=== PATIENT | male | born 1975 | race Two or more races ===

== ENCOUNTER 2019-07-21 19:36 | Emergency (ER) | payer SELFPAY ==
[~2019-07-21] VITALS: Ht 172.7 cm; Wt 99.8 kg
[2019-07-21] MEDS ORDERED: IV NORMAL SALINE 1000ML BAG 1,000 ML IV ONE (20:00)
[2019-07-21 20:23] LABS: INFLUENZA A PATIENT NEGATIVE (NEGATIVE); INFLUENZA B PATIENT POSITIVE (NEGATIVE)
[2019-07-21 20:24] LABS: BASO % 1 % (0-3); EOS # 0.1 x10^3/uL (0.0-0.7); EOS % 2 % (0-3); HEMATOCRIT 45.6 % (39.0-53.0); HEMOGLOBIN 15.7 g/dL (13.0-17.5); LYMPH # 1.4 x10^3/uL (1.0-4.8); LYMPH % 25 % (24-48); MEAN CORPUSCULAR HEMOGLOBIN 30 pg (25-35); MEAN CORPUSCULAR HGB CONC 34 g/dL (31-37); MEAN CORPUSCULAR VOLUME 87 fL (79-100); MONO # 0.5 x10^3/uL (0.0-1.1); MONO % 10 % (0-9); NEUT # 3.5 x10^3/uL (1.8-7.7); NEUT % 63 % (31-73); PLATELET COUNT 146 x10^3/uL (140-400); RED BLOOD COUNT 5.24 x10^6/uL (4.30-5.70); RED CELL DISTRIBUTION WIDTH 13.6 % (11.5-14.5); WHITE BLOOD COUNT 5.5 x10^3/uL (4.0-11.0)
[2019-07-21 20:32] LABS: PROTHROMBIN TIME PATIENT 12.4 SEC (11.7-14.0)
[2019-07-21 20:39] LABS: CALCIUM 8.5 mg/dL (8.5-10.1); CREATININE 0.8 mg/dL (0.7-1.3); POTASSIUM 3.6 mmol/L (3.5-5.1)
[2019-07-21 20:53] LABS: TOTAL BILIRUBIN 0.3 mg/dL (0.2-1.0)
--- NOTE | 2019-07-21 21:10 | RAD ---
EXAM: CT HEAD WITHOUT CONTRAST. HISTORY: Headache and sinus pain. TECHNIQUE: Computed tomography of the head was performed without intravenous contrast. One or more of the following individualized dose reduction techniques were utilized for this examination: 1. Automated exposure control. 2. Adjustment of the mA and/or kV according to patient size. 3. Use of iterative reconstruction technique. COMPARISON: None. FINDINGS: A few tiny parenchymal calcifications are noted in the temporal lobes and right frontal lobe. There is no intracranial hemorrhage. Galvin-white differentiation is preserved. The ventricles are normal in size and position. There is mild mucosal thickening in the ethmoid air cells. There are no air-fluid levels within the visualized paranasal sinuses. The orbits are unremarkable. The temporal bones are unremarkable. The calvarium reveals no suspicious lesions. IMPRESSION: 1. No acute intracranial findings. 2. A few tiny parenchymal calcifications are nonspecific. Correlate for congenital infections, cavernomas, or other infections such as cysticercosis. Electronically signed by: Kingston Rene MD (07/21/2019 9:07 PM) [facility]
[2019-07-21 21:23] LABS: BILIRUBIN,URINE NEGATIVE (NEG); CLARITY,URINE CLEAR; COLOR,URINE YELLOW; NITRITE,URINE NEGATIVE (NEG); PROTEIN,URINE NEGATIVE (NEG-TRACE); UROBILINOGEN,URINE 0.2 mg/dL (0.2 mg/dL)
[2019-07-21 21:28] LABS: BACTERIA,URINE 0 /HPF (0-FEW); RBC,URINE 0 /HPF (0-2); WBC,URINE 0 /HPF (0-4)
--- NOTE | 2019-07-21 21:28 | RAD ---
EXAM: PA and Lateral Views of the Chest DATE: 07/21/2019 7:46 PM INDICATION: Cough, fever, shortness of air COMPARISON: No Prior FINDINGS: The heart is not enlarged. Mediastinal and hilar contours are stable. Patchy opacities medial right lung base likely atelectasis or developing consolidation. No pleural effusion or pneumothorax. IMPRESSION: Patchy opacities medial right lung base likely atelectasis or developing consolidation. Electronically signed by: Hilario Jesus MD (07/21/2019 9:25 PM) [place] [id number]
[2019-07-21] MEDS ORDERED: AMOX1TAB61 PO (21:35)
--- NOTE | 2019-07-21 21:35 | PHYS DOC ---
Past Medical History Past Medical History: No Pertinent History Past Surgical History: Appendectomy Additional Past Surgical Histo: SPINE SURGERY Alcohol Use: None Drug Use: None Adult General Chief Complaint Chief Complaint: FLU SYMPTOM HPI HPI Patient is a 44 year old male presented to ER today for evaluation of 3 weeks history of cough,, congestion, facial pain, body ache, FLU-LIKE symptomS. he denies any abdominal pain, no nausea vomiting, no trouble breathing. he did not get the flu shot this year. He said whenever he coughs, noticed some clear sputum. He denies any neck stiffness. All other ROS is negative unless otherwise noted in HPI Review of Systems Review of Systems See above Current Medications Current Medications Current Medications Medications (Trade) Dose Ordered Sig/Leslie Start Time Stop Time Status Last Admin Dose Admin Sodium Chloride 1,000 ml @ 1,000 mls/hr 1X ONCE 07/21/19 20:00 07/21/19 20:59 DC 07/21/19 20:00 1,000 MLS/HR Allergies Allergies Allergies Coded Allergies Type Severity Reaction Last Updated Verified No Known Drug Allergies 07/21/19 No Physical Exam Physical Exam See above Constitutional: Well developed, well nourished, no acute distress, non-toxic appearance. [] HENT: Normocephalic, atraumatic, bilateral external ears normal, oropharynx moist, no oral exudates, nose normal. BILATERAL FRONTAL SINUSES TENDER TO PALPATION. ORAPHARYNGEAL IS ERYTHEMATOUS, NO EXUDATION. Eyes: PERRLA, EOMI, conjunctiva normal, no discharge. [] Neck: Normal range of motion, no tenderness, supple, no stridor. [] Cardiovascular:Heart rate regular rhythm, no murmur [] Lungs & Thorax: Bilateral breath sounds clear to auscultation [] Abdomen: Bowel sounds normal, soft, no tenderness, no masses, no pulsatile masses. [] Skin: Warm, dry, no erythema, no rash. [] Back: No tenderness, no CVA tenderness. [] Extremities: No tenderness, no cyanosis, no clubbing, ROM intact, no edema. [] Neurologic: Alert and oriented X 3, normal motor function, normal sensory function, no focal deficits noted. [] Psychologic: Affect normal, judgement normal, mood normal. [] Current Patient Data Vital Signs Vital Signs Date Time Temp Pulse Resp B/P (MAP) Pulse Ox O2 Delivery O2 Flow Rate FiO2 1/5/20 19:40 98.9 95 17 130/79 (96) 98 Room Air 98.9 Lab Values Laboratory Tests Test 07/21/19 19:40 07/21/19 20:04 Urine Collection Type Unknown Urine Color Yellow Urine Clarity Clear Urine pH 8.0 Urine Specific [place] 1.015 Urine Protein Negative mg/dL (NEG-TRACE) Urine Glucose (UA) Negative mg/dL (NEG) Urine Ketones (Stick) Trace mg/dL (NEG) Urine Blood Negative (NEG) Urine Nitrite Negative (NEG) Urine Bilirubin Negative (NEG) Urine Urobilinogen Dipstick 0.2 mg/dL (0.2 mg/dL) Urine Leukocyte Esterase Negative (NEG) Urine RBC 0 /HPF (0-2) Urine WBC 0 /HPF (0-4) Urine Bacteria 0 /HPF (0-FEW) Influenza Type A Antigen Negative (NEGATIVE) Influenza Type B Antigen Positive (NEGATIVE) White Blood Count 5.5 x10^3/uL (4.0-11.0) Red Blood Count 5.24 x10^6/uL (4.30-5.70) Hemoglobin 15.7 g/dL (13.0-17.5) Hematocrit 45.6 % (39.0-53.0) Mean Corpuscular Volume 87 fL (79-100) Mean Corpuscular Hemoglobin 30 pg (25-35) Mean Corpuscular Hemoglobin Concent 34 g/dL (31-37) Red Cell Distribution Width 13.6 % (11.5-14.5) Platelet Count 146 x10^3/uL (140-400) Neutrophils (%) (Auto) 63 % (31-73) Lymphocytes (%) (Auto) 25 % (24-48) Monocytes (%) (Auto) 10 % (0-9) H Eosinophils (%) (Auto) 2 % (0-3) Basophils (%) (Auto) 1 % (0-3) Neutrophils # (Auto) 3.5 x10^3/uL (1.8-7.7) Lymphocytes # (Auto) 1.4 x10^3/uL (1.0-4.8) Monocytes # (Auto) 0.5 x10^3/uL (0.0-1.1) Eosinophils # (Auto) 0.1 x10^3/uL (0.0-0.7) Basophils # (Auto) 0.0 x10^3/uL (0.0-0.2) Prothrombin Time 12.4 SEC (11.7-14.0) Prothrombin Time INR 1.0 (0.8-1.1) Activated Partial Thromboplast Time 29 SEC (24-38) Sodium Level 136 mmol/L (136-145) Potassium Level 3.6 mmol/L (3.5-5.1) Chloride Level 101 mmol/L (98-107) Carbon Dioxide Level 24 mmol/L (21-32) Anion Gap 11 (6-14) Blood Urea Nitrogen 12 mg/dL (8-26) Creatinine 0.8 mg/dL (0.7-1.3) Estimated GFR (Cockcroft-Gault) 106.0 BUN/Creatinine Ratio 15 (6-20) Glucose Level 92 mg/dL (70-99) Lactic Acid Level 1.2 mmol/L (0.4-2.0) Calcium Level 8.5 mg/dL (8.5-10.1) Total Bilirubin 0.3 mg/dL (0.2-1.0) Aspartate Amino Transferase (AST) 122 U/L (15-37) H Alanine Aminotransferase (ALT) 165 U/L (16-63) H Alkaline Phosphatase 80 U/L (46-116) Troponin I Quantitative < 0.017 ng/mL (0.000-0.055) Total Protein 8.0 g/dL (6.4-8.2) Albumin 4.0 g/dL (3.4-5.0) Albumin/Globulin Ratio 1.0 (1.0-1.7) Laboratory Tests 07/21/19 20:04 Laboratory Tests 07/21/19 20:04 EKG EKG [] Radiology/Procedures Radiology/Procedures [][facility] [address] [place] [address] IMAGING REPORT Signed PATIENT: AAKASH ORLANDO ACCOUNT: [id number] : 1975 LOCATION: ER AGE: 44 SEX: M EXAM STATUS: PRE ER ORD. PHYSICIAN: ANGELICA LEOS DO REASON: headache, sinus pain for 2 weeks PROCEDURE: CT HEAD WO CONTRAST EXAM: CT HEAD WITHOUT CONTRAST. HISTORY: Headache and sinus pain. TECHNIQUE: Computed tomography of the head was performed without intravenous contrast. One or more of the following individualized dose reduction techniques were utilized for this examination: 1. Automated exposure control. 2. Adjustment of the mA and/or kV according to patient size. 3. Use of iterative reconstruction technique. COMPARISON: None. FINDINGS: A few tiny parenchymal calcifications are noted in the temporal lobes and right frontal lobe. There is no intracranial hemorrhage. Galvin-white differentiation is preserved. The ventricles are normal in size and position. There is mild mucosal thickening in the ethmoid air cells. There are no air-fluid levels within the visualized paranasal sinuses. The orbits are unremarkable. The temporal bones are unremarkable. The calvarium reveals no suspicious lesions. IMPRESSION: 1. No acute intracranial findings. 2. A few tiny parenchymal calcifications are nonspecific. Correlate for congenital infections, cavernomas, or other infections such as cysticercosis. Electronically signed by: Kingston Rene MD (07/21/2019 9:07 PM) [facility] DICTATED and SIGNED BY: HÉCTOR RENE MD DATE: 07/21/192106 Course & Med Decision Making Course & Med Decision Making Pertinent Labs and Imaging studies reviewed. (See chart for details) [] Dragon Disclaimer Dragon Disclaimer This electronic medical record was generated, in whole or in part, using a voice recognition dictation system. Departure Departure Impression: Primary Impression: Influenza B Additional Impression: Sinusitis Disposition: HOME, SELF-CARE Condition: STABLE Referrals: NO PCP (PCP) FOLLOW UP WITH YOUR DOCTOR NEXT WEEK FOR REEVALUATION. Patient Instructions: Influenza, Adult, [id number], Sinusitis Scripts Amoxicillin/Potassium Clav (AUGMENTIN 875-125 TABLET) 1 Each Tablet 1 TAB PO BID for 10 Days, #20 TAB 0 Refills Prov: ANGELICA LEOS DO 07/21/19 Problem Qualifiers ANGELICA LEOS DO Jul 21, 2019 21:35
[2019-07-21 21:45] VITALS: BP 122/81
--- NOTE | 2019-07-22 07:27 | EKG ---
[facility] [address] [place] [address] Test Date: 2019-07-21 Test Time: 20:23:49 Pat Name: AAKASH ORLANDO Department: Room: Gender: M [employer]: : 1975 Requested By: ANGELCIA LEOS Order Number: [id number] Reading MD: Measurements Intervals [place] Rate: 86 P: 0 DE: 134 QRS: 0 QRSD: 74 T: 17 QT: 338 QTc: 407 Interpretive Statements SINUS RHYTHM LEFTWARD AXIS OTHERWISE NORMAL ECG RI6.01 No previous ECG available for comparison
== END 2019-07-21 21:44 | disposition home or self-care (01) ==
LOC: ER 19:36
DX: J10.1 Influenza due to other identified influenza virus with other respiratory manifestations (principal); J32.9 Chronic sinusitis, unspecified; R05 Cough; R09.81 Nasal congestion; R51 Headache; Z90.89 Acquired absence of other organs; Z98.890 Other specified postprocedural states
CPT/HCPCS: 36415; 70450; 71046; 80053; 81001; 83605; 84484; 85025; 85610; 85730; 87040; 87070; 87804; 87880; 93005; 99285; J7030